=== PATIENT | female | born 1955 | race African-American/Black ===

== ENCOUNTER 2016-09-10 17:56 | Emergency (ER) | payer BC | END 2016-09-10 21:00 | disposition other institution (70) | LOC: ER 17:56 | DX: G45.9 Transient cerebral ischemic attack, unspecified (principal); Z87.891 Personal history of nicotine dependence | CPT/HCPCS: 36415; 70450; 71010; 80053; 80061; 82553; 82947; 84484; 85025; 85384; 85610; 85730; 93005 ==